=== PATIENT | male | born 1970 | race Caucasian/White ===

== ENCOUNTER 2018-03-01 22:55 | Emergency (ER) | payer OTHER ==
[~2018-03-01] VITALS: Ht 180.3 cm; Wt 119.8 kg
[2018-03-02] MEDS ORDERED: TESTOSTERONE (00:19)
[2018-03-02] MEDS ORDERED: [UNRECOGNIZED DRUG - REMARK] (00:19)
[2018-03-02] MEDS ORDERED: ESTROGEN BLOCKER (00:20)
[2018-03-02] MEDS ORDERED: AUGMENTIN (00:20)
[2018-03-02] MEDS ORDERED: VOLTAREN GEL 1100 G2 TOP (01:03)
[2018-03-02] MEDS ORDERED: FLEXERIL PO (01:03)
[2018-03-02 02:20] VITALS: BP 154/85
== END 2018-03-02 02:20 | disposition home or self-care (01) ==
LOC: M.ERS 22:55
DX: S30.0XXA Contusion of lower back and pelvis, initial encounter (principal); E03.9 Hypothyroidism, unspecified; W19.XXXA Unspecified fall, initial encounter; Y93.89 Activity, other specified; Y92.89 Other specified places as the place of occurrence of the external cause; Y99.8 Other external cause status